=== PATIENT | male | born 1975 | race Caucasian/White ===

== ENCOUNTER 2021-02-03 08:14 | Emergency (ER) | payer OTHER ==
[2021-02-03 08:30] VITALS: BP 107/73; PULSE 82; TEMP 98.1; BMI 27.4
[2021-02-03 11:28] LABS: URINE APPEARANCE CLEAR; URINE BILIRUBIN 1+ (NEGATIVE); URINE COLOR YELLOW; URINE GLUCOSE (UA) 3+ (NEGATIVE)
[2021-02-03 11:29] LABS: URINE KETONE TRACE (NEGATIVE)
[2021-02-03 11:31] LABS: EPI CELLS 18.6 /uL (0-25.1); HYALINE CASTS 1.77 /uL (0-3.1); PH,URINE 5.5 (5.0-8.0); URINE BACTERIA 51.2 /uL (0-1359); URINE LEUK ESTERASE NEGATIVE (NEGATIVE); URINE NITRITE NEGATIVE (NEGATIVE); URINE PROTEIN 2+ (NEGATIVE); URINE RBC 27.5 /uL (0-23.9); URINE WBC 15.1 /uL (0-25.8)
== END 2021-02-03 12:14 | disposition home or self-care (01) ==
LOC: JER 08:14
DX: J06.9 Acute upper respiratory infection, unspecified (principal); E11.9 Type 2 diabetes mellitus without complications
CPT/HCPCS: 81003; 82962; 87086; 87804; 99283-25; C9803; U0003; U0005

== ENCOUNTER 2022-10-06 16:40 | Emergency (ER) | payer OTHER ==
[2022-10-06 16:54] VITALS: BP 132/82; PULSE 90; RESP 18; TEMP 98.4; BMI 27.4
[2022-10-06] MEDS ORDERED: ACETAMINOPHEN 1000 MG/100 ML BAG IVPB ONE (18:27)
[2022-10-06] MEDS ORDERED: ACETAMINOPHEN INJECTION 100 ML IVPB ONE (18:41)
[2022-10-06 18:56] LABS: EOS % 2.2 % (0-4.5); HEMATOCRIT 36.3 % (35.4-49); HEMOGLOBIN 12.6 GM/dL (11.7-16.9); LYMPH % 31.7 % (8-40); MCH 29.8 pg (25.7-33.7); MCHC 34.7 g/dl (32.0-35.9); MEAN CELL VOLUME 86.1 fl (80-96); MEAN PLT VOLUME 9.3 fl (7.5-11.1); MONO % 6.9 % (3.8-10.2); NEUT % 58.2 % (42.8-82.8); PLATELET COUNT 329 10^3/uL (134-434); RBC 4.22 M/mm3 (4.00-5.60); RDW 12.7 % (11.9-15.9); WHITE BLOOD COUNT 9.8 K/mm3 (4.0-10.0)
[2022-10-06 19:14] LABS: POTASSIUM 4.7 mmol/L (3.5-5.1)
[2022-10-06 19:15] LABS: CALCIUM 9.9 mg/dL (8.5-10.1)
[2022-10-06 19:16] LABS: ALBUMIN 3.6 g/dl (3.4-5.0)
[2022-10-06 19:21] LABS: BILIRUBIN,TOTAL 0.2 mg/dL (0.2-1); TOT PROT 6.7 g/dl (6.4-8.2)
[2022-10-06 19:51] LABS: ERYTHROCYTE SEDIMENTATION RATE 10 mm/hr (0-10)
== END 2022-10-06 21:58 | disposition home or self-care (01) ==
LOC: JER 16:40
PROC: 3E033NZ Introduction of Analgesics, Hypnotics, Sedatives into Peripheral Vein, Percutaneous Approach (ICD-10-PCS; principal; 2022-10-06)
DX: R22.41 Localized swelling, mass and lump, right lower limb (principal); M79.661 Pain in right lower leg; R50.9 Fever, unspecified; R11.0 Nausea; R20.2 Paresthesia of skin; R51.9 Headache, unspecified
CPT/HCPCS: 36415; 73562-TC-RT-FY; 73590-TC-RT-FY; 73610-TC-RT-FY; 73630-TC-RT-FY; 80053; 83605; 85025; 85651; 86140; 87040; 93971-TC; 99285-25

== ENCOUNTER 2023-03-13 22:33 | Inpatient (IN) | payer OTHER ==
[2023-03-13 22:37] VITALS: BMI 25.8
[2023-03-13] MEDS ORDERED: CLINDAMYCIN 600MG PREMIX IVPB 600 MG/50 ML BAG IVPB ONE ×2 (23:40→23:50)
[2023-03-13] MEDS ORDERED: LIDOCAINE 1%/EPI 1:100000 (20 ML MULTI DOSE VIAL) IJ ONE (23:41)
[2023-03-14] MEDS ORDERED: ACETAMINOPHEN INJECTION 100 ML IVPB ONE (00:03)
[2023-03-14] MEDS ORDERED: ACETAMINOPHEN 1000 MG/100 ML BAG IVPB ONE (00:04)
[2023-03-14 00:13] LABS: BASO % 0.8 % (0-2.0); EOS % 1.7 % (0-4.5); LYMPH % 21.8 % (8-40); MCH 28.5 pg (25.7-33.7); MCHC 34.4 g/dl (32.0-35.9); MEAN PLT VOLUME 8.7 fl (7.5-11.1); NEUT % 67.7 % (42.8-82.8); PLATELET COUNT 248 10^3/uL (134-434); RBC 4.58 M/mm3 (4.00-5.60); RDW 13.3 % (11.9-15.9)
[2023-03-14 00:21] LABS: INR 1.16 (0.83-1.09); PROTHROMBIN TIME (PATIENT) 13.4 SEC (9.7-13.0)
[2023-03-14 00:23] LABS: ACTIVATED PTT 28.4 SECONDS (25.2-36.5)
[2023-03-14 01:03] LABS: BILIRUBIN,TOTAL 0.3 mg/dL (0.2-1); BLOOD UREA NITROGEN 15.1 mg/dL (7-18); CALCIUM 8.5 mg/dL (8.5-10.1); CREATININE 0.8 mg/dL (0.55-1.3); POTASSIUM 3.9 mmol/L (3.5-5.1); TOT PROT 6.3 g/dl (6.4-8.2)
[2023-03-14] MEDS ORDERED: LACTATED RINGERS SOLUTION 1000 ML INFUS.BAG IV ONE (01:11)
[2023-03-14] MEDS: INSULIN SLIDING SCALE (NOVOLOG) 1 VIAL SQ SCH ×4 (06:06→21:53)
[2023-03-14 09:17] LABS: HEMATOCRIT 36.2 % (35.4-49); HEMOGLOBIN 12.1 GM/dL (11.7-16.9); MCH 28.1 pg (25.7-33.7); MCHC 33.4 g/dl (32.0-35.9); MEAN CELL VOLUME 84.3 fl (80-96); MEAN PLT VOLUME 8.8 fl (7.5-11.1); PLATELET COUNT 258 10^3/uL (134-434); RBC 4.29 M/mm3 (4.00-5.60); RDW 13.1 % (11.9-15.9); WHITE BLOOD COUNT 12.3 K/mm3 (4.0-10.0)
[2023-03-14] MEDS ORDERED: CEFTRIAXONE 1 GM in DEXTROSE 5%-WATER - 50 ML IVPB SCH (10:00)
[2023-03-14 10:12] LABS: POTASSIUM 3.9 mmol/L (3.5-5.1)
[2023-03-14] MEDS: CLINDAMYCIN 600MG PREMIX IVPB 600 MG/50 ML BAG IVPB SCH ×2 (10:17→17:07)
[2023-03-14] MEDS: ENOXAPARIN NA (PORCINE) 40 MG/0.4 ML DISP.SYRIN SQ SCH (10:17)
[2023-03-14 10:36] LABS: BLOOD UREA NITROGEN 12.9 mg/dL (7-18); CALCIUM 8.8 mg/dL (8.5-10.1)
[2023-03-14 10:37] LABS: ALBUMIN 2.8 g/dl (3.4-5.0); MAGNESIUM 1.9 mg/dL (1.8-2.4)
[2023-03-14 10:39] LABS: PHOSPHOROUS 2.4 mg/dL (2.5-4.9)
[2023-03-14 10:40] LABS: CREATININE 0.7 mg/dL (0.55-1.3)
[2023-03-14 10:41] LABS: BILIRUBIN,TOTAL 0.5 mg/dL (0.2-1); TOT PROT 5.9 g/dl (6.4-8.2)
[2023-03-14] MEDS: ACETAMINOPHEN 325 MG TABLET (FP) PO PRN (11:00)
[2023-03-14] MEDS ORDERED: FLU VACCINE (FLULAVAL) PF 60 MCG/0.5 ML SYRINGE 2023-2024 IM ONE (12:00)
[2023-03-14 12:36] LABS: EPI CELLS 4 /uL (0-25.1); HYALINE CASTS 0 /uL (0-3.1); PH,URINE 5.5 (5.0-8.0); URINE APPEARANCE CLEAR; URINE BACTERIA 56 /uL (0-1359); URINE BILIRUBIN NEGATIVE (NEGATIVE); URINE COLOR YELLOW; URINE GLUCOSE (UA) 3+ (NEGATIVE); URINE KETONE TRACE (NEGATIVE); URINE LEUK ESTERASE NEGATIVE (NEGATIVE); URINE NITRITE NEGATIVE (NEGATIVE); URINE PROTEIN 3+ (NEGATIVE); URINE RBC 29 /uL (0-23.9); URINE WBC 3 /uL (0-25.8)
[2023-03-14] MEDS: PIPERACILLIN/TAZOB 3.375 GM 3.375 GM in DEXTROSE 5%-WATER - 50 ML IVPB SCH (17:34)
[2023-03-14] MEDS: LISINOPRIL 10 MG TABLET PO SCH (21:53)
[2023-03-15] MEDS: CLINDAMYCIN 600MG PREMIX IVPB 600 MG/50 ML BAG IVPB SCH ×3 (01:31→17:43)
[2023-03-15] MEDS: PIPERACILLIN/TAZOB 3.375 GM 3.375 GM in DEXTROSE 5%-WATER - 50 ML IVPB SCH ×3 (02:09→18:17)
[2023-03-15] MEDS: INSULIN SLIDING SCALE (NOVOLOG) 1 VIAL SQ SCH ×4 (06:01→21:50)
[2023-03-15] MEDS: ENOXAPARIN NA (PORCINE) 40 MG/0.4 ML DISP.SYRIN SQ SCH (11:36)
[2023-03-15] MEDS: LISINOPRIL 10 MG TABLET PO SCH (21:53)
[2023-03-15] MEDS: ACETAMINOPHEN 325 MG TABLET (FP) PO PRN (21:53)
[2023-03-16] MEDS: CLINDAMYCIN 600MG PREMIX IVPB 600 MG/50 ML BAG IVPB SCH ×3 (02:44→17:27)
[2023-03-16] MEDS: PIPERACILLIN/TAZOB 3.375 GM 3.375 GM in DEXTROSE 5%-WATER - 50 ML IVPB SCH ×2 (02:44→10:23)
[2023-03-16] MEDS: INSULIN SLIDING SCALE (NOVOLOG) 1 VIAL SQ SCH ×4 (06:08→22:04)
[2023-03-16 06:17] VITALS: RESP 18
[2023-03-16] MEDS: ENOXAPARIN NA (PORCINE) 40 MG/0.4 ML DISP.SYRIN SQ SCH (09:27)
[2023-03-16] MEDS ORDERED: INSULIN (NOVOLOG) ASPART 100 UNITS/ML 10ML VIAL ONE ×2 (16:53→22:03)
[2023-03-16] MEDS: morphine SULFATE 4 MG/ML VIAL IVPUSH PRN (16:55)
[2023-03-16] MEDS: LISINOPRIL 10 MG TABLET PO SCH (22:05)
[2023-03-17] MEDS: CLINDAMYCIN 600MG PREMIX IVPB 600 MG/50 ML BAG IVPB SCH ×3 (02:12→17:28)
[2023-03-17] MEDS: morphine SULFATE 4 MG/ML VIAL IVPUSH PRN (06:20)
[2023-03-17] MEDS: INSULIN SLIDING SCALE (NOVOLOG) 1 VIAL SQ SCH ×4 (06:20→22:27)
[2023-03-17 08:19] LABS: BASO % 1.1 % (0-2.0); EOS % 3.2 % (0-4.5); HEMATOCRIT 34.1 % (35.4-49); HEMOGLOBIN 11.8 GM/dL (11.7-16.9); LYMPH % 22.3 % (8-40); MCH 28.9 pg (25.7-33.7); MCHC 34.7 g/dl (32.0-35.9); MEAN CELL VOLUME 83.2 fl (80-96); MEAN PLT VOLUME 9.1 fl (7.5-11.1); MONO % 7.5 % (3.8-10.2); NEUT % 65.9 % (42.8-82.8); PLATELET COUNT 291 10^3/uL (134-434); RDW 12.9 % (11.9-15.9); WHITE BLOOD COUNT 8.4 K/mm3 (4.0-10.0)
[2023-03-17 08:30] LABS: POTASSIUM 4.8 mmol/L (3.5-5.1)
[2023-03-17 08:33] LABS: CALCIUM 8.6 mg/dL (8.5-10.1)
[2023-03-17 08:34] LABS: ALBUMIN 2.5 g/dl (3.4-5.0); BLOOD UREA NITROGEN 21.7 mg/dL (7-18)
[2023-03-17 08:37] LABS: CREATININE 0.9 mg/dL (0.55-1.3)
[2023-03-17 08:38] LABS: BILIRUBIN,TOTAL 0.4 mg/dL (0.2-1)
[2023-03-17 08:39] LABS: TOT PROT 5.9 g/dl (6.4-8.2)
[2023-03-17] MEDS ORDERED: INSULIN (NOVOLOG) ASPART 100 UNITS/ML 10ML VIAL ONE ×2 (10:15→22:25)
[2023-03-17] MEDS: ENOXAPARIN NA (PORCINE) 40 MG/0.4 ML DISP.SYRIN SQ SCH (10:24)
[2023-03-17] MEDS: LISINOPRIL 10 MG TABLET PO SCH (22:18)
[2023-03-18] MEDS: CLINDAMYCIN 600MG PREMIX IVPB 600 MG/50 ML BAG IVPB SCH ×2 (03:00→09:05)
[2023-03-18] MEDS: INSULIN SLIDING SCALE (NOVOLOG) 1 VIAL SQ SCH ×3 (06:40→16:34)
[2023-03-18] MEDS: ENOXAPARIN NA (PORCINE) 40 MG/0.4 ML DISP.SYRIN SQ SCH (09:06)
[2023-03-18 14:28] VITALS: BP 114/70; PULSE 83; TEMP 97.6
== END 2023-03-18 17:43 | disposition home or self-care (01) | DRG 383 ==
LOC: JER 22:33 → JERBED 03-14 02:55 → J5S 03-14 04:57 → J6S 03-16 10:00
PROVIDERS: ADMIT Internal Medicine; ATTEND Internal Medicine
PROC: 0Y9J0ZZ Drainage of Left Lower Leg, Open Approach (ICD-10-PCS; principal; 2023-03-13)
DX: L03.116 Cellulitis of left lower limb (principal); B95.62 Methicillin resistant Staphylococcus aureus infection as the cause of diseases classified elsewhere; L02.416 Cutaneous abscess of left lower limb; E11.9 Type 2 diabetes mellitus without complications
CPT/HCPCS: 36415; 73700-TC-RT; 80053; 81003; 82962; 83036; 83735; 84100; 85025; 85027; 85610; 85730; 87040; 87070; 87186; 87205; 90686; 99285-25; G0008

== ENCOUNTER 2023-06-26 18:59 | Emergency (ER) | payer OTHER ==
[2023-06-26 19:20] VITALS: BP 102/68; PULSE 86; RESP 18; TEMP 99.6; BMI 28.0
[2023-06-26 20:26] LABS: THROAT:GRP A STREP NOT DETECTED (NOTDETECTED)
== END 2023-06-26 21:53 | disposition home or self-care (01) ==
LOC: JER 18:59 → JERFT 18:59
DX: R05.1 Acute cough (principal); R53.83 Other fatigue; R51.9 Headache, unspecified; R63.0 Anorexia; M25.561 Pain in right knee; M71.21 Synovial cyst of popliteal space [Baker], right knee; J10.1 Influenza due to other identified influenza virus with other respiratory manifestations; Z20.822 Contact with and (suspected) exposure to COVID-19
CPT/HCPCS: 0241U-QW; 71046-TC-FY; 87651; 93971-TC; 99285-25

== ENCOUNTER 2023-08-04 09:08 | Inpatient (IN) | payer OTHER ==
[2023-08-04] MEDS ORDERED: MECLIZINE HCL 25 MG TABLET (FP) ONE (10:13)
[2023-08-04] MEDS: MECLIZINE HCL 25 MG TABLET (FP) PO ONE (10:22)
[2023-08-04] MEDS: SODIUM CHLORIDE 0.9% 500 ML INFUS.BAG IV ONE (10:33)
[2023-08-04 10:42] LABS: VENOUS BASE EXCESS -0.3 mmol/L (-2-2); VENOUS PCO2 46.7 mmHg (38-52); VENOUS PH 7.357 (7.310-7.410)
[2023-08-04 10:45] LABS: BASO % 0.7 % (0-2.0); EOS % 1.7 % (0-4.5); HEMATOCRIT 41.9 % (35.4-49); HEMOGLOBIN 14.4 GM/dL (11.7-16.9); LYMPH % 18.2 % (8-40); MCH 28.7 pg (25.7-33.7); MCHC 34.2 g/dl (32.0-35.9); MEAN CELL VOLUME 83.9 fl (80-96); MEAN PLT VOLUME 8.4 fl (7.5-11.1); MONO % 4.6 % (3.8-10.2); NEUT % 74.8 % (42.8-82.8); PLATELET COUNT 305 10^3/uL (134-434); RBC 4.99 M/mm3 (4.00-5.60); WHITE BLOOD COUNT 14.5 K/mm3 (4.0-10.0)
[2023-08-04 10:46] LABS: EPI CELLS 18 /uL (0-25.1); HYALINE CASTS 0 /uL (0-3.1); URINE APPEARANCE CLEAR; URINE BACTERIA 140 /uL (0-1359); URINE BILIRUBIN NEGATIVE (NEGATIVE); URINE COLOR YELLOW; URINE GLUCOSE (UA) 3+ (NEGATIVE); URINE KETONE NEGATIVE (NEGATIVE); URINE LEUK ESTERASE NEGATIVE (NEGATIVE); URINE NITRITE NEGATIVE (NEGATIVE); URINE PROTEIN 3+ (NEGATIVE); URINE RBC 29 /uL (0-23.9); URINE UROBILINOGEN 0.2 mg/dL (0.2-1.0)
[2023-08-04 11:07] LABS: POTASSIUM 4.6 mmol/L (3.5-5.1)
[2023-08-04 11:09] LABS: ALBUMIN 3.2 g/dl (3.4-5.0); BLOOD UREA NITROGEN 9.9 mg/dL (7-18); CALCIUM 9.3 mg/dL (8.5-10.1); MAGNESIUM 1.8 mg/dL (1.8-2.4)
[2023-08-04 11:12] LABS: CREATININE 0.9 mg/dL (0.55-1.3)
[2023-08-04 11:14] LABS: BILIRUBIN,TOTAL 0.2 mg/dL (0.2-1); TOT PROT 6.8 g/dl (6.4-8.2)
[2023-08-04 11:48] LABS: CHOLESTEROL 191 mg/dL (50-200)
[2023-08-04 11:49] LABS: LDL CHOLESTEROL (ONLY SJRH) 116 mg/dL (5-100)
[2023-08-04 11:50] LABS: HDL CHOLESTEROL 55 mg/dL (40-60)
[2023-08-04] MEDS ORDERED: METOCLOPRAMIDE HCL INJECTION 10 MG/2 ML VIAL ONE (13:45)
[2023-08-04] MEDS: LACTATED RINGERS SOLUTION 1,000 ML/1,000 ML INFUS.BAG IV SCH (14:00)
[2023-08-04] MEDS: METOCLOPRAMIDE HCL INJECTION 10 MG/2 ML VIAL IVPUSH ONE (14:00)
[2023-08-04] MEDS ORDERED: MECLIZINE HCL 25 MG TABLET (FP) PO PRN (14:58)
[2023-08-04 16:01] VITALS: BMI 23.0
[2023-08-04] MEDS: INSULIN ASPART SLIDING SCALE (NOVOLOG) 1 VIAL SQ SCH (17:11)
[2023-08-04] MEDS: glipiZIDE 5 MG TABLET (FP) PO SCH (17:11)
[2023-08-04] MEDS: metFORMIN HCL 500 MG TABLET (FP) PO SCH (17:11)
[2023-08-04 17:53] LABS: METHADONE, UR NEGATIVE (NEGATIVE); URINE AMPHETAMINES NEGATIVE (NEGATIVE); URINE BENZODIAZEPINES NEGATIVE (NEGATIVE)
[2023-08-04 17:54] LABS: OPIATES, URI NEGATIVE (NEGATIVE); PHENCYCLIDINE,URINE NEGATIVE (NEGATIVE); URINE BARBITURATES NEGATIVE (NEGATIVE)
[2023-08-04 18:02] LABS: COCAINE, UR POSITIVE (NEGATIVE)
[2023-08-04] MEDS: HEPARIN NA (PORCINE) 5,000 UNITS/ML 1ML VIAL SQ SCH (22:03)
[2023-08-04] MEDS: ATORVASTATIN CA 10 MG TABLET (FP) PO SCH (22:04)
[2023-08-05 06:33] LABS: BASO % 1.1 % (0-2.0); EOS % 2.6 % (0-4.5); HEMATOCRIT 34.8 % (35.4-49); HEMOGLOBIN 11.9 GM/dL (11.7-16.9); LYMPH % 40.7 % (8-40); MCH 28.5 pg (25.7-33.7); MCHC 34.1 g/dl (32.0-35.9); MEAN CELL VOLUME 83.6 fl (80-96); MEAN PLT VOLUME 8.8 fl (7.5-11.1); MONO % 5.1 % (3.8-10.2); NEUT % 50.5 % (42.8-82.8); PLATELET COUNT 250 10^3/uL (134-434); RBC 4.17 M/mm3 (4.00-5.60); WHITE BLOOD COUNT 9.1 K/mm3 (4.0-10.0)
[2023-08-05 06:58] LABS: POTASSIUM 3.9 mmol/L (3.5-5.1)
[2023-08-05 07:04] LABS: CALCIUM 8.1 mg/dL (8.5-10.1)
[2023-08-05 07:05] LABS: BLOOD UREA NITROGEN 13.3 mg/dL (7-18)
[2023-08-05 07:07] LABS: CREATININE 0.7 mg/dL (0.55-1.3)
[2023-08-05 07:09] LABS: BILIRUBIN,TOTAL 0.2 mg/dL (0.2-1); TOT PROT 4.9 g/dl (6.4-8.2)
[2023-08-05 07:36] LABS: ALBUMIN 2.3 g/dl (3.4-5.0)
[2023-08-05] MEDS ORDERED: LISINOPRIL 10 MG TABLET PO SCH (10:00)
[2023-08-05] MEDS: EMPAGLIFLOZIN (JARDIANCE) 10 MG TABLET PO SCH (10:51)
[2023-08-05] MEDS: LISINOPRIL 10 MG TABLET PO SCH (10:51)
[2023-08-05] MEDS: SODIUM CHLORIDE 500 ML IV STA (10:52)
[2023-08-05] MEDS: ASPIRIN 81 MG CHEWABLE TABLETS PO SCH (10:53)
[2023-08-05] MEDS: metFORMIN HCL 500 MG TABLET (FP) PO SCH (17:46)
[2023-08-05] MEDS: NICOTINE 14 MG/24 HOURS TOPICAL PATCH TD SCH (17:47)
[2023-08-06 07:26] LABS: HEMOGLOBIN 12.4 GM/dL (11.7-16.9); MCH 28.5 pg (25.7-33.7); MCHC 33.6 g/dl (32.0-35.9); MEAN CELL VOLUME 84.9 fl (80-96); MEAN PLT VOLUME 9.1 fl (7.5-11.1); PLATELET COUNT 271 10^3/uL (134-434); RBC 4.36 M/mm3 (4.00-5.60); RDW 13.1 % (11.9-15.9); WHITE BLOOD COUNT 7.8 K/mm3 (4.0-10.0)
[2023-08-06 07:51] LABS: POTASSIUM 4.2 mmol/L (3.5-5.1)
[2023-08-06 07:56] LABS: MAGNESIUM 1.7 mg/dL (1.8-2.4)
[2023-08-06 07:59] LABS: PHOSPHOROUS 5.3 mg/dL (2.5-4.9)
[2023-08-06 08:00] LABS: CREATININE 0.9 mg/dL (0.55-1.3)
[2023-08-06] MEDS: MAGNESIUM SULF 50% (8.12 MEQ/2 ML-1 GM VIAL) IVPB ONE (10:25)
[2023-08-06 14:15] VITALS: TEMP 98.2
[2023-08-06 18:46] VITALS: BP 120/71; PULSE 95; RESP 18
== END 2023-08-06 19:29 | disposition home or self-care (01) | DRG 420 ==
LOC: JER 09:08 → JERBED 13:05 → OBSVTOIN 14:55 → J4S 15:03
PROVIDERS: ADMIT Internal Medicine; ATTEND Internal Medicine
DX: E11.65 Type 2 diabetes mellitus with hyperglycemia (principal); R42 Dizziness and giddiness; R20.0 Anesthesia of skin; I10 Essential (primary) hypertension; F19.20 Other psychoactive substance dependence, uncomplicated; E87.1 Hypo-osmolality and hyponatremia; F17.210 Nicotine dependence, cigarettes, uncomplicated; F14.20 Cocaine dependence, uncomplicated; E11.40 Type 2 diabetes mellitus with diabetic neuropathy, unspecified; E46 Unspecified protein-calorie malnutrition; Z68.23 Body mass index [BMI] 23.0-23.9, adult
CPT/HCPCS: 36415; 70450-TC; 71045-TC-FY; 80048; 80053; 80061; 80307; 81003; 82803; 82962; 83036; 83735; 84100; 84443; 85025; 85027; 93005; 93010; 99285-25; G0378; J1644

== ENCOUNTER 2023-08-23 16:55 | Emergency (ER) | payer OTHER ==
[2023-08-23] MEDS ORDERED: METOCLOPRAMIDE HCL INJECTION 10 MG/2 ML VIAL ONE (18:01)
[2023-08-23] MEDS ORDERED: NALOXONE HCL 0.4 MG/ML VIAL ONE (18:01)
[2023-08-23 18:06] LABS: VENOUS BASE EXCESS -2.7 mmol/L (-2-2); VENOUS O2 SATURATION 88.8 % (70-80); VENOUS PCO2 35.2 mmHg (38-52); VENOUS PH 7.401 (7.310-7.410)
[2023-08-23 18:06] LABS: BASO % 0.5 % (0-2.0); EOS % 0.5 % (0-4.5); HEMATOCRIT 37.9 % (35.4-49); LYMPH % 13.2 % (8-40); MCH 28.8 pg (25.7-33.7); MCHC 34.2 g/dl (32.0-35.9); MEAN PLT VOLUME 7.9 fl (7.5-11.1); MONO % 5.4 % (3.8-10.2); NEUT % 80.4 % (42.8-82.8); PLATELET COUNT 324 10^3/uL (134-434); RBC 4.51 M/mm3 (4.00-5.60); WHITE BLOOD COUNT 10.8 K/mm3 (4.0-10.0)
[2023-08-23] MEDS: METOCLOPRAMIDE HCL INJECTION 10 MG/2 ML VIAL IVPUSH ONE (18:11)
[2023-08-23] MEDS: SODIUM CHLORIDE 0.9% 500 ML INFUS.BAG IV ONE (18:11)
[2023-08-23] MEDS: NALOXONE HCL 0.4 MG/ML VIAL IVPUSH ONE (18:11)
[2023-08-23 18:16] VITALS: BP 138/86; PULSE 81; RESP 12; BMI 21.6
[2023-08-23 18:17] LABS: INR 1.25 (0.83-1.09)
[2023-08-23 18:20] LABS: ACTIVATED PTT 30.7 SECONDS (25.2-36.5)
[2023-08-23 18:26] LABS: POTASSIUM 3.5 mmol/L (3.5-5.1)
[2023-08-23 18:27] LABS: CALCIUM 8.8 mg/dL (8.5-10.1)
[2023-08-23 18:29] LABS: ALBUMIN 2.9 g/dl (3.4-5.0); BLOOD UREA NITROGEN 15.2 mg/dL (7-18)
[2023-08-23 18:31] LABS: CREATININE 0.8 mg/dL (0.55-1.3)
[2023-08-23 18:33] LABS: TOT PROT 6.1 g/dl (6.4-8.2)
[2023-08-23 18:34] LABS: BILIRUBIN,TOTAL 0.4 mg/dL (0.2-1)
[2023-08-23 20:08] LABS: EPI CELLS 6 /uL (0-25.1); HYALINE CASTS 0 /uL (0-3.1); PH,URINE 6.5 (5.0-8.0); URINE APPEARANCE CLEAR; URINE BACTERIA 45 /uL (0-1359); URINE BILIRUBIN NEGATIVE (NEGATIVE); URINE COLOR YELLOW; URINE GLUCOSE (UA) 3+ (NEGATIVE); URINE KETONE TRACE (NEGATIVE); URINE LEUK ESTERASE NEGATIVE (NEGATIVE); URINE NITRITE NEGATIVE (NEGATIVE); URINE PROTEIN 3+ (NEGATIVE); URINE RBC 32 /uL (0-23.9); URINE UROBILINOGEN 0.2 mg/dL (0.2-1.0); URINE WBC 16 /uL (0-25.8)
[2023-08-23 20:10] LABS: PHENCYCLIDINE,URINE NEGATIVE (NEGATIVE)
[2023-08-23 20:11] LABS: METHADONE, UR NEGATIVE (NEGATIVE); OPIATES, URI NEGATIVE (NEGATIVE); URINE AMPHETAMINES NEGATIVE (NEGATIVE); URINE BENZODIAZEPINES NEGATIVE (NEGATIVE)
[2023-08-23 20:17] LABS: URINE BARBITURATES NEGATIVE (NEGATIVE)
[2023-08-23 20:28] LABS: COCAINE, UR POSITIVE (NEGATIVE)
[2023-08-23] MEDS ORDERED: MAGNESIUM SULFATE IN WATER 2 GM/50 ML IVPB IVPB ONE (21:34)
[2023-08-23] MEDS: MAGNESIUM SULF 50% (8.12 MEQ/2 ML-1 GM VIAL) IVPB ONE (21:40)
== END 2023-08-23 22:34 | disposition home or self-care (01) ==
LOC: JER 16:55
PROC: 3E033GC Introduction of Other Therapeutic Substance into Peripheral Vein, Percutaneous Approach (ICD-10-PCS; principal; 2023-08-23)
PROC: 3E033GC Introduction of Other Therapeutic Substance into Peripheral Vein, Percutaneous Approach (ICD-10-PCS; 2023-08-23)
PROC: 3E033NZ Introduction of Analgesics, Hypnotics, Sedatives into Peripheral Vein, Percutaneous Approach (ICD-10-PCS; 2023-08-23)
DX: R42 Dizziness and giddiness (principal); R51.9 Headache, unspecified; R11.2 Nausea with vomiting, unspecified; R73.9 Hyperglycemia, unspecified
CPT/HCPCS: 36415; 70450-TC; 70496-TC; 70498-TC; 71045-TC-FY; 80053; 80061; 80307; 81003; 82550; 82803; 82962; 83036; 83735; 84484; 85025; 85610; 85730; 86850; 86900; 86901; 93005; 93010; 99285-25; Q9967

== ENCOUNTER 2024-01-05 09:52 | Emergency (ER) | payer OTHER ==
[2024-01-05 10:02] VITALS: TEMP 98.2; BMI 21.6
[2024-01-05] MEDS: SODIUM CHLORIDE 0.9% 500 ML INFUS.BAG IV ONE (10:49)
[2024-01-05 10:51] LABS: VENOUS O2 SATURATION 60.9 % (70-80); VENOUS PCO2 41.9 mmHg (38-52); VENOUS PH 7.378 (7.310-7.410)
[2024-01-05 10:54] LABS: BASO % 0.6 % (0-2.0); HEMATOCRIT 36.1 % (35.4-49); HEMOGLOBIN 12.6 GM/dL (11.7-16.9); LYMPH % 18.8 % (8-40); MCHC 34.9 g/dl (32.0-35.9); MEAN CELL VOLUME 83.1 fl (80-96); MEAN PLT VOLUME 7.4 fl (7.5-11.1); MONO % 6.8 % (3.8-10.2); NEUT % 72.8 % (42.8-82.8); PLATELET COUNT 338 10^3/uL (134-434); RBC 4.34 M/mm3 (4.00-5.60); RDW 13.3 % (11.9-15.9); WHITE BLOOD COUNT 10.8 K/mm3 (4.0-10.0)
[2024-01-05 11:12] LABS: POTASSIUM 4.3 mmol/L (3.5-5.1)
[2024-01-05 11:15] LABS: ALBUMIN 3.3 g/dl (3.4-5.0)
[2024-01-05 11:18] LABS: CREATININE 0.9 mg/dL (0.55-1.3)
[2024-01-05 11:19] LABS: BILIRUBIN,TOTAL 0.3 mg/dL (0.2-1); TOT PROT 6.5 g/dl (6.4-8.2)
[2024-01-05 11:37] VITALS: BP 110/79; PULSE 78; RESP 17
== END 2024-01-05 11:42 | disposition home or self-care (01) ==
LOC: JER 09:52
DX: E11.65 Type 2 diabetes mellitus with hyperglycemia (principal); Z79.84 Long term (current) use of oral hypoglycemic drugs
CPT/HCPCS: 36415; 80053; 82010; 82803; 82962; 85025; 99283-25

== ENCOUNTER 2024-02-19 09:38 | Emergency (ER) | payer OTHER ==
[2024-02-19 09:49] VITALS: BP 133/83; PULSE 102; RESP 17; TEMP 98.2
[2024-02-19] MEDS ORDERED: ACETAMINOPHEN 500 MG TABLET (FP) ONE (11:04)
[2024-02-19] MEDS: ACETAMINOPHEN 500 MG TABLET (FP) PO ONE (11:19)
[2024-02-19 11:42] LABS: BASO % 1.1 % (0-2.0); EOS % 2.8 % (0-4.5); HEMATOCRIT 38.8 % (35.4-49); HEMOGLOBIN 13.1 GM/dL (11.7-16.9); LYMPH % 28.1 % (8-40); MCH 28.7 pg (25.7-33.7); MCHC 33.8 g/dl (32.0-35.9); MEAN PLT VOLUME 8.3 fl (7.5-11.1); MONO % 5.9 % (3.8-10.2); NEUT % 62.1 % (42.8-82.8); PLATELET COUNT 352 10^3/uL (134-434); RBC 4.57 M/mm3 (4.00-5.60); RDW 13.2 % (11.9-15.9); WHITE BLOOD COUNT 9.6 K/mm3 (4.0-10.0)
[2024-02-19 11:49] LABS: EPI CELLS 5 /uL (0-25.1); HYALINE CASTS 0 /uL (0-3.1); PH,URINE 5.5 (5.0-8.0); URINE APPEARANCE CLEAR; URINE BACTERIA 181 /uL (0-1359); URINE BILIRUBIN NEGATIVE (NEGATIVE); URINE COLOR YELLOW; URINE GLUCOSE (UA) 3+ (NEGATIVE); URINE KETONE NEGATIVE (NEGATIVE); URINE LEUK ESTERASE NEGATIVE (NEGATIVE); URINE NITRITE NEGATIVE (NEGATIVE); URINE PROTEIN 2+ (NEGATIVE); URINE UROBILINOGEN 0.2 mg/dL (0.2-1.0)
[2024-02-19 11:59] LABS: POTASSIUM 4.5 mmol/L (3.5-5.1)
[2024-02-19 12:01] LABS: ALBUMIN 3.1 g/dl (3.4-5.0); BLOOD UREA NITROGEN 12.9 mg/dL (7-18); CALCIUM 9.5 mg/dL (8.5-10.1)
[2024-02-19 12:05] LABS: CREATININE 0.9 mg/dL (0.55-1.3)
[2024-02-19 12:06] LABS: BILIRUBIN,TOTAL 0.2 mg/dL (0.2-1); TOT PROT 6.5 g/dl (6.4-8.2); URINE RBC 20 /uL (0-23.9); URINE WBC 107.9 /uL (0-25.8)
[2024-02-19 12:43] LABS: THROAT:GRP A STREP NOT DETECTED (NOTDETECTED)
[2024-02-19 13:19] LABS: HIV INTERPRETATION NEGATIVE (NEGATIVE)
== END 2024-02-19 15:07 | disposition left against medical advice (07) ==
LOC: JERFT 09:38
DX: R09.81 Nasal congestion (principal); R05.9 Cough, unspecified; R51.9 Headache, unspecified; M79.10 Myalgia, unspecified site; R00.0 Tachycardia, unspecified; J06.9 Acute upper respiratory infection, unspecified; E11.65 Type 2 diabetes mellitus with hyperglycemia; Z20.822 Contact with and (suspected) exposure to COVID-19
CPT/HCPCS: 0241U-QW; 36415; 71046-TC-FY; 80053; 81003; 85025; 86803; 87086; 87389; 87651; 99284-25

== ENCOUNTER 2024-02-22 11:07 | Emergency (ER) | payer OTHER ==
[2024-02-22] MEDS ORDERED: ACETAMINOPHEN INJECTION 100 ML ONE (12:33)
[2024-02-22] MEDS ORDERED: METOCLOPRAMIDE HCL INJECTION 10 MG/2 ML VIAL ONE (12:34)
[2024-02-22] MEDS: ACETAMINOPHEN 1000 MG/100 ML BAG IVPB ONE (12:53)
[2024-02-22] MEDS: METOCLOPRAMIDE HCL INJECTION 10 MG/2 ML VIAL IVPB ONE (12:53)
[2024-02-22 13:00] LABS: HEMATOCRIT 37.9 % (35.4-49); HEMOGLOBIN 13.1 GM/dL (11.7-16.9); MCH 28.9 pg (25.7-33.7); MCHC 34.4 g/dl (32.0-35.9); MEAN CELL VOLUME 84.1 fl (80-96); MEAN PLT VOLUME 7.7 fl (7.5-11.1); PLATELET COUNT 341 10^3/uL (134-434); RBC 4.51 M/mm3 (4.00-5.60); RDW 13.4 % (11.9-15.9); WHITE BLOOD COUNT 10.8 K/mm3 (4.0-10.0)
[2024-02-22 13:27] LABS: POTASSIUM 4.3 mmol/L (3.5-5.1)
[2024-02-22 13:31] LABS: CALCIUM 8.7 mg/dL (8.5-10.1)
[2024-02-22 13:32] LABS: ALBUMIN 3.2 g/dl (3.4-5.0); BLOOD UREA NITROGEN 17.3 mg/dL (7-18)
[2024-02-22 13:35] LABS: CREATININE 1.5 mg/dL (0.55-1.3)
[2024-02-22 13:36] LABS: BILIRUBIN,TOTAL 0.4 mg/dL (0.2-1)
[2024-02-22 13:37] LABS: TOT PROT 6.6 g/dl (6.4-8.2)
[2024-02-22 16:45] VITALS: BP 99/70; PULSE 75; RESP 20; TEMP 98.2
== END 2024-02-22 17:26 | disposition home or self-care (01) ==
LOC: JERFT 11:07 → JER 11:07 → JERFT 17:26
DX: G43.909 Migraine, unspecified, not intractable, without status migrainosus (principal); R42 Dizziness and giddiness
CPT/HCPCS: 36415; 70450-TC; 80053; 82962; 85027; 99284-25; J0131

== ENCOUNTER 2024-02-29 15:34 | Emergency (ER) | payer OTHER ==
[2024-02-29 15:59] VITALS: BP 131/84; PULSE 91; RESP 16; TEMP 98.1; BMI 25.4
[2024-02-29] MEDS: SODIUM CHLORIDE 0.9% 500 ML INFUS.BAG IV ONE (17:30)
[2024-02-29 17:35] LABS: EPI CELLS 22 /uL (0-25.1); HYALINE CASTS 1 /uL (0-3.1); URINE APPEARANCE CLEAR; URINE BACTERIA 138 /uL (0-1359); URINE BILIRUBIN NEGATIVE (NEGATIVE); URINE COLOR YELLOW; URINE GLUCOSE (UA) 3+ (NEGATIVE); URINE KETONE TRACE (NEGATIVE); URINE LEUK ESTERASE NEGATIVE (NEGATIVE); URINE NITRITE NEGATIVE (NEGATIVE); URINE PROTEIN 4+ (NEGATIVE); URINE RBC 26 /uL (0-23.9); URINE UROBILINOGEN 0.2 mg/dL (0.2-1.0)
[2024-02-29] MEDS ORDERED: ACETAMINOPHEN 500 MG TABLET (FP) ONE (19:10)
[2024-02-29] MEDS: ACETAMINOPHEN 500 MG TABLET (FP) PO ONE (19:12)
[2024-02-29 22:02] LABS: URINE WBC 20 /uL (0-25.8)
== END 2024-02-29 19:18 | disposition home or self-care (01) ==
LOC: JER 15:34
DX: R51.9 Headache, unspecified (principal); M25.561 Pain in right knee; G89.28 Other chronic postprocedural pain; R68.83 Chills (without fever); Z20.822 Contact with and (suspected) exposure to COVID-19
CPT/HCPCS: 0241U-QW; 71046-TC-FY; 81003; 82962; 87086; 99284-25

== ENCOUNTER 2024-04-28 18:18 | Inpatient (IN) | payer OTHER ==
[2024-04-28] MEDS ORDERED: PIPERACILLIN/TAZOB 4.5 GM 4.5 GM/100 ML BAG IVPB ONE (20:56)
[2024-04-28] MEDS ORDERED: VANCOMYCIN 1 GM PREMIX (F) 1 GM/200 ML BAG ONE (20:56)
[2024-04-28] MEDS ORDERED: ACETAMINOPHEN INJECTION 100 ML ONE (20:56)
[2024-04-28] MEDS: PIPERACILLIN/TAZOB 4.5 GM 4.5 GM in DEXTROSE 5%-WATER 100 ML IVPB ONE (21:19)
[2024-04-28] MEDS: ACETAMINOPHEN 1000 MG/100 ML BAG IVPB ONE (21:19)
[2024-04-28 21:23] LABS: BASO % 0.5 % (0-2.0); EOS % 1.5 % (0-4.5); HEMATOCRIT 41.5 % (35.4-49); HEMOGLOBIN 14.1 GM/dL (11.7-16.9); LYMPH % 26.3 % (8-40); MCH 28.6 pg (25.7-33.7); MCHC 33.9 g/dl (32.0-35.9); MEAN CELL VOLUME 84.3 fl (80-96); MONO % 4.4 % (3.8-10.2); NEUT % 67.3 % (42.8-82.8); PLATELET COUNT 329 10^3/uL (134-434); RBC 4.92 M/mm3 (4.00-5.60); WHITE BLOOD COUNT 10.6 K/mm3 (4.0-10.0)
[2024-04-28 21:31] LABS: INR 1.21 (0.83-1.09); PROTHROMBIN TIME (PATIENT) 13.8 SEC (9.7-13.0)
[2024-04-28 21:50] LABS: CHLORIDE 98 mmol/L (98-107); POTASSIUM 4.6 mmol/L (3.5-5.1); SODIUM 135 mmol/L (136-145)
[2024-04-28 21:54] LABS: ALBUMIN 3.1 g/dl (3.4-5.0)
[2024-04-28 21:56] LABS: ANION GAP 7 mmol/L (4-13); CALCIUM 9.3 mg/dL (8.5-10.1); CO2 30 mmol/L (21-32); SGPT/ALT 11 U/L (13-61)
[2024-04-28 21:57] LABS: BILIRUBIN,TOTAL 0.3 mg/dL (0.2-1); CREATININE 1.1 mg/dL (0.55-1.3); SGOT/AST 8 U/L (15-37)
[2024-04-28 21:58] LABS: ALK PHOS 170 U/L (45-117); TOT PROT 6.8 g/dl (6.4-8.2)
[2024-04-28 22:05] LABS: GLUCOSE,RANDOM 405 mg/dL (74-106)
[2024-04-28] MEDS: VANCOMYCIN 1,000 MG in DEXTROSE 5%-WATER - 250 ML IVPB ONE (22:22)
[2024-04-28] MEDS: LACTATED RINGERS SOLUTION 1000 ML INFUS.BAG IV ONE (22:47)
[2024-04-28] MEDS: SODIUM CHLORIDE 1,000 ML IV SCH (22:48)
[2024-04-28] MEDS: INSULIN (NOVOLOG) ASPART 100 UNITS/ML 10ML VIAL SQ ONE (22:48)
[2024-04-28 22:55] LABS: HIV INTERPRETATION NEGATIVE (NEGATIVE)
[2024-04-28] MEDS: INSULIN (LEVEMIR) 100 UNITS/ML UNITS SQ SCH (23:27)
[2024-04-28 23:29] LABS: ERYTHROCYTE SEDIMENTATION RATE 38 mm/hr (0-10)
[2024-04-28] MEDS ORDERED: INSULIN (LEVEMIR) 100 UNITS/ML UNITS SQ ONE (23:38)
[2024-04-29] MEDS: NICOTINE 14 MG/24 HOURS TOPICAL PATCH TD SCH (00:33)
[2024-04-29] MEDS ORDERED: ACETAMINOPHEN 500 MG TABLET (FP) PO PRN (00:45)
[2024-04-29] MEDS ORDERED: PIPERACILLIN/TAZOB 3.375 GM 3.375 GM/50 ML BAG IVPB ONE ×2 (02:04→09:28)
[2024-04-29] MEDS: PIPERACILLIN/TAZOB 3.375 GM 3.375 GM in DEXTROSE 5%-WATER - 50 ML IVPB SCH (02:13)
[2024-04-29] MEDS: INSULIN ASPART SLIDING SCALE (NOVOLOG) 1 VIAL SQ SCH (07:19)
[2024-04-29 07:57] LABS: BASO % 0.8 % (0-2.0); EOS % 4.4 % (0-4.5); HEMATOCRIT 36.7 % (35.4-49); HEMOGLOBIN 12.5 GM/dL (11.7-16.9); LYMPH % 43.1 % (8-40); MCH 28.9 pg (25.7-33.7); MCHC 34.1 g/dl (32.0-35.9); MEAN CELL VOLUME 84.6 fl (80-96); MEAN PLT VOLUME 8.3 fl (7.5-11.1); MONO % 6.2 % (3.8-10.2); NEUT % 45.5 % (42.8-82.8); PLATELET COUNT 303 10^3/uL (134-434); RBC 4.34 M/mm3 (4.00-5.60); WHITE BLOOD COUNT 8.5 K/mm3 (4.0-10.0)
[2024-04-29 08:09] LABS: POTASSIUM 3.8 mmol/L (3.5-5.1)
[2024-04-29 08:11] LABS: CALCIUM 8.7 mg/dL (8.5-10.1)
[2024-04-29 08:12] LABS: ALBUMIN 2.6 g/dl (3.4-5.0); BLOOD UREA NITROGEN 20.5 mg/dL (7-18); MAGNESIUM 1.6 mg/dL (1.8-2.4)
[2024-04-29 08:15] LABS: PHOSPHOROUS 4.5 mg/dL (2.5-4.9)
[2024-04-29 08:17] LABS: BILIRUBIN,TOTAL 0.3 mg/dL (0.2-1); TOT PROT 5.5 g/dl (6.4-8.2)
[2024-04-29] MEDS ORDERED: INSULIN (LEVEMIR) 100 UNITS/ML UNITS SQ ONE (09:29)
[2024-04-29] MEDS: INSULIN (LEVEMIR) 100 UNITS/ML UNITS SQ SCH (09:32)
[2024-04-29] MEDS: ENOXAPARIN NA (PORCINE) 40 MG/0.4 ML DISP.SYRIN SQ SCH (09:33)
[2024-04-29] MEDS ORDERED: INSULIN ASPART SLIDING SCALE (NOVOLOG) 1 VIAL SQ ONE (12:31)
[2024-04-29] MEDS: VANCOMYCIN 1,000 MG in DEXTROSE 5%-WATER - 250 ML IVPB SCH (16:38)
[2024-04-29] MEDS ORDERED: VANCOMYCIN 1,000 MG in DEXTROSE 5%-WATER - 250 ML IVPB SCH (20:00)
[2024-04-29] MEDS ORDERED: VANCOMYCIN 1 GM PREMIX (F) 1 GM/200 ML BAG IVPB SCH (21:00)
[2024-04-29] MEDS: GABAPENTIN 300 MG CAPSULE PO SCH (22:49)
[2024-04-29] MEDS: ATORVASTATIN CA 10 MG TABLET (FP) PO SCH (22:49)
[2024-04-29 23:14] VITALS: BMI 21.8
[2024-04-30] MEDS: PIPERACILLIN/TAZOB 3.375 GM 3.375 GM in DEXTROSE 5%-WATER - 50 ML IVPB SCH (01:10)
[2024-04-30] MEDS: glipiZIDE 5 MG TABLET (FP) PO SCH (06:43)
[2024-04-30] MEDS: metFORMIN HCL 500 MG TABLET (FP) PO SCH (06:43)
[2024-04-30 09:13] LABS: BASO % 0.9 % (0-2.0); EOS % 3.4 % (0-4.5); HEMATOCRIT 34.3 % (35.4-49); HEMOGLOBIN 11.6 GM/dL (11.7-16.9); LYMPH % 41.9 % (8-40); MCH 28.9 pg (25.7-33.7); MCHC 33.9 g/dl (32.0-35.9); MEAN CELL VOLUME 85.4 fl (80-96); MEAN PLT VOLUME 8.5 fl (7.5-11.1); MONO % 5.1 % (3.8-10.2); NEUT % 48.7 % (42.8-82.8); PLATELET COUNT 280 10^3/uL (134-434); RBC 4.02 M/mm3 (4.00-5.60); RDW 13.1 % (11.9-15.9); WHITE BLOOD COUNT 8.3 K/mm3 (4.0-10.0)
[2024-04-30 09:20] LABS: POTASSIUM 3.9 mmol/L (3.5-5.1)
[2024-04-30 09:31] LABS: ALBUMIN 2.4 g/dl (3.4-5.0); CALCIUM 8.4 mg/dL (8.5-10.1)
[2024-04-30 09:34] LABS: CREATININE 0.9 mg/dL (0.55-1.3)
[2024-04-30 09:36] LABS: BILIRUBIN,TOTAL 0.2 mg/dL (0.2-1); TOT PROT 5.2 g/dl (6.4-8.2)
[2024-04-30] MEDS: LISINOPRIL 5 MG TABLET PO SCH (10:49)
[2024-04-30 19:07] VITALS: BP 96/67; PULSE 76; RESP 20; TEMP 98.2
== END 2024-04-30 19:28 | disposition home or self-care (01) | DRG 197 ==
LOC: JER 18:18 → JERBED 22:32 → J7W 04-29 20:42
PROVIDERS: ADMIT Internal Medicine; ATTEND Internal Medicine
DX: E11.52 Type 2 diabetes mellitus with diabetic peripheral angiopathy with gangrene (principal); I96 Gangrene, not elsewhere classified; E11.40 Type 2 diabetes mellitus with diabetic neuropathy, unspecified; E11.621 Type 2 diabetes mellitus with foot ulcer; E11.65 Type 2 diabetes mellitus with hyperglycemia; I10 Essential (primary) hypertension; R42 Dizziness and giddiness; L97.528 Non-pressure chronic ulcer of other part of left foot with other specified severity; Z91.148 Patient's other noncompliance with medication regimen for other reason
CPT/HCPCS: 36415; 73630-TC-LT; 73718-TC-LT; 80053; 82962; 83036; 83735; 84100; 85025; 85610; 85651; 86140; 86803; 87081; 87389; 93005; 93010; 93922; 93925-TC; 99285-25; J0131

== ENCOUNTER 2024-05-11 20:29 | Inpatient (IN) | payer OTHER ==
[2024-05-12] MEDS ORDERED: VANCOMYCIN 1,000 MG in DEXTROSE 5%-WATER - 250 ML IVPB ONE (01:00)
[2024-05-12 01:36] LABS: BASO % 0.6 % (0-2.0); EOS % 3.7 % (0-4.5); HEMATOCRIT 37.4 % (35.4-49); HEMOGLOBIN 12.7 GM/dL (11.7-16.9); LYMPH % 38.6 % (8-40); MCH 28.7 pg (25.7-33.7); MEAN CELL VOLUME 84.4 fl (80-96); MEAN PLT VOLUME 8.1 fl (7.5-11.1); NEUT % 49.1 % (42.8-82.8); PLATELET COUNT 295 10^3/uL (134-434); RBC 4.43 M/mm3 (4.00-5.60); RDW 13.2 % (11.9-15.9); WHITE BLOOD COUNT 7.6 K/mm3 (4.0-10.0)
[2024-05-12 01:55] LABS: POTASSIUM 4.5 mmol/L (3.5-5.1)
[2024-05-12 01:56] LABS: CALCIUM 8.9 mg/dL (8.5-10.1)
[2024-05-12 01:57] LABS: BLOOD UREA NITROGEN 32.4 mg/dL (7-18)
[2024-05-12 02:00] LABS: CREATININE 1.1 mg/dL (0.55-1.3)
[2024-05-12 02:02] LABS: BILIRUBIN,TOTAL 0.2 mg/dL (0.2-1); TOT PROT 6.4 g/dl (6.4-8.2)
[2024-05-12] MEDS ORDERED: PIPERACILLIN/TAZOB 4.5 GM 4.5 GM/100 ML BAG IVPB ONE (02:11)
[2024-05-12] MEDS: PIPERACILLIN/TAZOB 4.5 GM 4.5 GM in DEXTROSE 5%-WATER 100 ML IVPB ONE (02:20)
[2024-05-12 02:40] LABS: ERYTHROCYTE SEDIMENTATION RATE 39 mm/hr (0-10)
[2024-05-12] MEDS ORDERED: VANCOMYCIN 1 GM PREMIX (F) 1 GM/200 ML BAG ONE ×2 (03:04→15:58)
[2024-05-12] MEDS: VANCOMYCIN 1 GM PREMIX (F) 1 GM/200 ML BAG IVPB ONE (03:10)
[2024-05-12] MEDS ORDERED: ACETAMINOPHEN 500 MG TABLET (FP) ONE ×2 (04:13→21:50)
[2024-05-12] MEDS ORDERED: DOCUSATE SODIUM 100 MG CAPSULE (FP) PO PRN (04:15)
[2024-05-12] MEDS: ACETAMINOPHEN 500 MG TABLET (FP) PO ONE (04:16)
[2024-05-12] MEDS ORDERED: MECLIZINE HCL 25 MG TABLET (FP) PO PRN (05:31)
[2024-05-12] MEDS ORDERED: GABAPENTIN 300 MG CAPSULE ONE ×2 (06:43→13:33)
[2024-05-12] MEDS: GABAPENTIN 300 MG CAPSULE PO SCH (06:46)
[2024-05-12 07:59] LABS: BASO % 0.8 % (0-2.0); EOS % 4.8 % (0-4.5); HEMATOCRIT 33.5 % (35.4-49); HEMOGLOBIN 11.7 GM/dL (11.7-16.9); LYMPH % 43.7 % (8-40); MCH 29.2 pg (25.7-33.7); MCHC 34.9 g/dl (32.0-35.9); MEAN CELL VOLUME 83.7 fl (80-96); MEAN PLT VOLUME 8.4 fl (7.5-11.1); MONO % 8.6 % (3.8-10.2); NEUT % 42.1 % (42.8-82.8); PLATELET COUNT 260 10^3/uL (134-434); RBC 4.01 M/mm3 (4.00-5.60); RDW 13.2 % (11.9-15.9); WHITE BLOOD COUNT 6.3 K/mm3 (4.0-10.0)
[2024-05-12 08:18] LABS: POTASSIUM 4.4 mmol/L (3.5-5.1)
[2024-05-12 08:21] LABS: INR 1.11 (0.83-1.09); PROTHROMBIN TIME (PATIENT) 12.7 SEC (9.7-13.0)
[2024-05-12 08:23] LABS: ACTIVATED PTT 29.7 SECONDS (25.2-36.5)
[2024-05-12 08:26] LABS: BLOOD UREA NITROGEN 34.7 mg/dL (7-18); CALCIUM 8.7 mg/dL (8.5-10.1); MAGNESIUM 1.6 mg/dL (1.8-2.4)
[2024-05-12 08:29] LABS: CREATININE 1.2 mg/dL (0.55-1.3)
[2024-05-12 08:30] LABS: PHOSPHOROUS 3.8 mg/dL (2.5-4.9)
[2024-05-12] MEDS ORDERED: PIPERACILLIN/TAZOB 3.375 GM 3.375 GM/50 ML BAG IVPB ONE ×3 (09:22→21:23)
[2024-05-12] MEDS: INSULIN ASPART SLIDING SCALE (NOVOLOG) 1 VIAL SQ SCH (09:35)
[2024-05-12] MEDS: PIPERACILLIN/TAZOB 3.375 GM 50 ML IVPB SCH (09:36)
[2024-05-12] MEDS ORDERED: HEPARIN NA (PORCINE) 5,000 UNITS/ML 1ML VIAL ONE (13:33)
[2024-05-12] MEDS: HEPARIN NA (PORCINE) 5,000 UNITS/ML 1ML VIAL SQ SCH (15:07)
[2024-05-12] MEDS: VANCOMYCIN 1 GM PREMIX (F) 1 GM/200 ML BAG IVPB SCH (16:08)
[2024-05-12] MEDS: ACETAMINOPHEN 500 MG TABLET (FP) PO PRN (22:30)
[2024-05-12] MEDS: ATORVASTATIN CA 10 MG TABLET (FP) PO SCH (22:30)
[2024-05-13 02:23] VITALS: BMI 21.7
[2024-05-13] MEDS: PIPERACILLIN/TAZOB 3.375 GM 50 ML IVPB SCH (03:30)
[2024-05-13] MEDS: VANCOMYCIN/WATER FOR INJ (PEG) 1 GM/200 ML BAG IVPB SCH (04:05)
[2024-05-13] MEDS: glipiZIDE 5 MG TABLET (FP) PO SCH (16:46)
[2024-05-14] MEDS: LISINOPRIL 5 MG TABLET PO SCH (09:29)
[2024-05-14 10:13] LABS: BASO % 0.7 % (0-2.0); HEMATOCRIT 33.8 % (35.4-49); HEMOGLOBIN 11.4 GM/dL (11.7-16.9); LYMPH % 42.4 % (8-40); MCH 28.7 pg (25.7-33.7); MCHC 33.8 g/dl (32.0-35.9); MEAN CELL VOLUME 84.8 fl (80-96); MEAN PLT VOLUME 8.7 fl (7.5-11.1); MONO % 7.8 % (3.8-10.2); NEUT % 45.1 % (42.8-82.8); PLATELET COUNT 257 10^3/uL (134-434); RBC 3.99 M/mm3 (4.00-5.60); RDW 13.1 % (11.9-15.9); WHITE BLOOD COUNT 7.5 K/mm3 (4.0-10.0)
[2024-05-14 10:28] LABS: POTASSIUM 4.7 mmol/L (3.5-5.1)
[2024-05-14 10:31] LABS: ALBUMIN 2.6 g/dl (3.4-5.0); BLOOD UREA NITROGEN 23.3 mg/dL (7-18)
[2024-05-14 10:35] LABS: CREATININE 1.2 mg/dL (0.55-1.3)
[2024-05-14 10:36] LABS: BILIRUBIN,TOTAL 0.3 mg/dL (0.2-1); TOT PROT 5.8 g/dl (6.4-8.2)
[2024-05-14 10:37] LABS: CALCIUM 8.6 mg/dL (8.5-10.1)
[2024-05-14] MEDS: PIPERACILLIN/TAZOB 3.375 GM 50 ML IVPB ONE (12:05)
[2024-05-14] MEDS: CEFTRIAXONE 2 GM-D5W BAG 2 GM/50 ML BAG IVPB SCH (15:38)
[2024-05-14 15:48] VITALS: RESP 18
[2024-05-15] MEDS: PIPERACILLIN/TAZOB 3.375 GM 3.375 GM in DEXTROSE 5%-WATER - 50 ML IVPB SCH (11:58)
[2024-05-15] MEDS: VANCOMYCIN 1 GM PREMIX (F) 1 GM/200 ML BAG IVPB SCH (11:58)
[2024-05-15 17:10] VITALS: BP 103/69; PULSE 69; TEMP 99.7
[2024-05-15] MEDS: glipiZIDE 5 MG TABLET (FP) PO SCH (18:23)
== END 2024-05-15 20:10 | disposition home or self-care (01) | DRG 380 ==
LOC: JER 20:29 → JERBED 05-12 03:55 → J5S 05-13 01:16
PROVIDERS: ADMIT Internal Medicine; ATTEND Internal Medicine
PROC: 0H9NXZZ Drainage of Left Foot Skin, External Approach (ICD-10-PCS; principal; 2024-05-13)
PROC: 0H9MXZZ Drainage of Right Foot Skin, External Approach (ICD-10-PCS; 2024-05-13)
DX: E11.621 Type 2 diabetes mellitus with foot ulcer (principal); L97.528 Non-pressure chronic ulcer of other part of left foot with other specified severity; L97.518 Non-pressure chronic ulcer of other part of right foot with other specified severity; E78.5 Hyperlipidemia, unspecified; S90.421A Blister (nonthermal), right great toe, initial encounter; S90.422A Blister (nonthermal), left great toe, initial encounter; E11.42 Type 2 diabetes mellitus with diabetic polyneuropathy; I10 Essential (primary) hypertension; F17.200 Nicotine dependence, unspecified, uncomplicated
CPT/HCPCS: 36415; 73630-TC-RT-FY; 80048; 80053; 82962; 83036; 83735; 84100; 85025; 85610; 85651; 85730; 86140; 87070; 87205; 93005; 93010; 99285-25; J1644

== ENCOUNTER 2024-05-30 17:28 | Inpatient (IN) | payer OTHER ==
[2024-05-30 19:04] LABS: BASO % 1.2 % (0-2.0); EOS % 3.1 % (0-4.5); HEMATOCRIT 36.9 % (35.4-49); HEMOGLOBIN 12.2 GM/dL (11.7-16.9); LYMPH % 34.3 % (8-40); MCH 28.2 pg (25.7-33.7); MCHC 33.1 g/dl (32.0-35.9); MEAN CELL VOLUME 85.2 fl (80-96); MEAN PLT VOLUME 8.1 fl (7.5-11.1); NEUT % 56.4 % (42.8-82.8); PLATELET COUNT 295 10^3/uL (134-434); RBC 4.33 M/mm3 (4.00-5.60); RDW 13.6 % (11.9-15.9); WHITE BLOOD COUNT 8.9 K/mm3 (4.0-10.0)
[2024-05-30 19:22] LABS: CHLORIDE 105 mmol/L (98-107); POTASSIUM 4.5 mmol/L (3.5-5.1); SODIUM 138 mmol/L (136-145)
[2024-05-30 19:24] LABS: ANION GAP 6 mmol/L (4-13); BLOOD UREA NITROGEN 24.1 mg/dL (7-18); CALCIUM 9.3 mg/dL (8.5-10.1); CO2 27 mmol/L (21-32); GLUCOSE,RANDOM 160 mg/dL (74-106)
[2024-05-30 19:25] LABS: ALBUMIN 3.4 g/dl (3.4-5.0)
[2024-05-30 19:27] LABS: SGOT/AST 12 U/L (15-37); SGPT/ALT 17 U/L (13-61)
[2024-05-30 19:28] LABS: CREATININE 0.9 mg/dL (0.55-1.3)
[2024-05-30 19:29] LABS: BILIRUBIN,TOTAL 0.2 mg/dL (0.2-1); TOT PROT 6.6 g/dl (6.4-8.2)
[2024-05-30 19:30] LABS: ALK PHOS 120 U/L (45-117)
[2024-05-30] MEDS ORDERED: VANCOMYCIN 1 GM PREMIX (F) 1 GM/200 ML BAG ONE (22:40)
[2024-05-30] MEDS ORDERED: PIPERACILLIN/TAZOB 4.5 GM 4.5 GM/100 ML BAG IVPB ONE (22:40)
[2024-05-30] MEDS: PIPERACILLIN/TAZOB 4.5 GM 4.5 GM in DEXTROSE 5%-WATER 100 ML IVPB ONE (22:48)
[2024-05-30] MEDS: VANCOMYCIN 1,000 MG in DEXTROSE 5%-WATER - 250 ML IVPB ONE (22:58)
[2024-05-31 02:47] VITALS: BMI 22.4
[2024-05-31] MEDS ORDERED: ACETAMINOPHEN 500 MG TABLET (FP) PO PRN (04:01)
[2024-05-31] MEDS: ACETAMINOPHEN 500 MG TABLET (FP) PO PRN (05:12)
[2024-05-31] MEDS: glipiZIDE 5 MG TABLET (FP) PO SCH (06:46)
[2024-05-31] MEDS: metFORMIN HCL 500 MG TABLET (FP) PO SCH (06:46)
[2024-05-31] MEDS: GABAPENTIN 100 MG CAPSULE PO SCH (06:46)
[2024-05-31] MEDS: INSULIN ASPART SLIDING SCALE (NOVOLOG) 1 VIAL SQ SCH (06:47)
[2024-05-31 09:05] LABS: HEMATOCRIT 37.3 % (35.4-49); HEMOGLOBIN 12.4 GM/dL (11.7-16.9); LYMPH % 42.1 % (8-40); MCH 28.5 pg (25.7-33.7); MCHC 33.2 g/dl (32.0-35.9); MEAN CELL VOLUME 85.8 fl (80-96); MEAN PLT VOLUME 8.2 fl (7.5-11.1); MONO % 6.8 % (3.8-10.2); NEUT % 46.1 % (42.8-82.8); PLATELET COUNT 334 10^3/uL (134-434); RBC 4.34 M/mm3 (4.00-5.60); RDW 13.6 % (11.9-15.9); WHITE BLOOD COUNT 9.7 K/mm3 (4.0-10.0)
[2024-05-31 09:30] LABS: CHLORIDE 108 mmol/L (98-107); POTASSIUM 3.7 mmol/L (3.5-5.1); SODIUM 141 mmol/L (136-145)
[2024-05-31 09:31] LABS: ANION GAP 5 mmol/L (4-13); BLOOD UREA NITROGEN 23.4 mg/dL (7-18); CALCIUM 9.3 mg/dL (8.5-10.1); CO2 29 mmol/L (21-32)
[2024-05-31 09:35] LABS: CREATININE 1.1 mg/dL (0.55-1.3)
[2024-05-31 09:53] LABS: GLUCOSE,RANDOM 29 mg/dL (74-106)
[2024-05-31] MEDS: PIPERACILLIN/TAZOB 4.5 GM 4.5 GM/100 ML BAG IVPB SCH (10:16)
[2024-05-31] MEDS: ENOXAPARIN NA (PORCINE) 40 MG/0.4 ML DISP.SYRIN SQ SCH (10:16)
[2024-05-31] MEDS: LISINOPRIL 5 MG TABLET PO SCH (10:47)
[2024-05-31] MEDS ORDERED: VANCOMYCIN/WATER FOR INJ (PEG) 1,000 MG/200 ML BAG IVPB SCH (11:00)
[2024-05-31] MEDS: VANCOMYCIN 1 GM PREMIX (F) 1,000 MG/200 ML BAG IVPB SCH (11:32)
[2024-05-31] MEDS: PIPERACILLIN/TAZOB 4.5 GM 4.5 GM in DEXTROSE 5%-WATER 100 ML IVPB SCH (12:41)
[2024-05-31] MEDS: VANCOMYCIN 1,000 MG in DEXTROSE 5%-WATER - 250 ML IVPB SCH (13:01)
[2024-05-31] MEDS: CEFTRIAXONE 2 GM-D5W BAG 2 GM/50 ML BAG IVPB SCH (13:18)
[2024-05-31] MEDS: ATORVASTATIN CA 10 MG TABLET (FP) PO SCH (21:59)
[2024-06-01 07:59] LABS: BASO % 0.9 % (0-2.0); EOS % 3.8 % (0-4.5); HEMOGLOBIN 11.6 GM/dL (11.7-16.9); LYMPH % 37.8 % (8-40); MCH 29.1 pg (25.7-33.7); MCHC 34.2 g/dl (32.0-35.9); MEAN CELL VOLUME 85.1 fl (80-96); MEAN PLT VOLUME 8.6 fl (7.5-11.1); MONO % 6.4 % (3.8-10.2); NEUT % 51.1 % (42.8-82.8); PLATELET COUNT 248 10^3/uL (134-434); RBC 3.99 M/mm3 (4.00-5.60); RDW 13.8 % (11.9-15.9)
[2024-06-01 08:11] LABS: POTASSIUM 4.6 mmol/L (3.5-5.1)
[2024-06-01 08:17] LABS: BLOOD UREA NITROGEN 24.5 mg/dL (7-18)
[2024-06-01 08:21] LABS: BILIRUBIN,TOTAL 0.3 mg/dL (0.2-1); TOT PROT 5.9 g/dl (6.4-8.2)
[2024-06-01] MEDS: SODIUM CHLORIDE 0.45% 1,000 ML IV SCH (11:54)
[2024-06-01] MEDS: metFORMIN HCL 500 MG TABLET (FP) PO SCH (17:35)
[2024-06-02 10:40] VITALS: RESP 18
[2024-06-02] MEDS: glipiZIDE 5 MG TABLET (FP) PO SCH (17:21)
[2024-06-02] MEDS: IBUPROFEN 600 MG TABLET (FP) PO PRN (17:21)
[2024-06-03 07:28] VITALS: PULSE 72
[2024-06-03 07:54] LABS: BASO % 1.1 % (0-2.0); HEMATOCRIT 32.1 % (35.4-49); HEMOGLOBIN 10.8 GM/dL (11.7-16.9); LYMPH % 40.1 % (8-40); MCH 28.9 pg (25.7-33.7); MCHC 33.6 g/dl (32.0-35.9); MEAN CELL VOLUME 85.9 fl (80-96); MEAN PLT VOLUME 8.8 fl (7.5-11.1); MONO % 8.1 % (3.8-10.2); NEUT % 45.7 % (42.8-82.8); PLATELET COUNT 219 10^3/uL (134-434); RBC 3.74 M/mm3 (4.00-5.60); RDW 13.5 % (11.9-15.9); WHITE BLOOD COUNT 5.8 K/mm3 (4.0-10.0)
[2024-06-03 08:15] LABS: POTASSIUM 4.2 mmol/L (3.5-5.1)
[2024-06-03 08:18] LABS: CALCIUM 8.8 mg/dL (8.5-10.1)
[2024-06-03 08:19] LABS: ALBUMIN 3.1 g/dl (3.4-5.0); BLOOD UREA NITROGEN 23.3 mg/dL (7-18)
[2024-06-03 08:22] LABS: CREATININE 0.9 mg/dL (0.55-1.3)
[2024-06-03 08:23] LABS: BILIRUBIN,TOTAL 0.3 mg/dL (0.2-1)
[2024-06-03 08:24] LABS: TOT PROT 5.6 g/dl (6.4-8.2)
[2024-06-03 09:22] VITALS: BP 106/73; TEMP 98.2
[2024-06-03] MEDS ORDERED: AMOX TR/POT CLAV 500MG/125MG TABLETS (FP) PO SCH (17:30)
== END 2024-06-03 14:36 | disposition home health service (06) | DRG 380 ==
LOC: JER 17:28 → JERBED 22:31 → J7W 05-31 03:02
PROVIDERS: ADMIT Student in an Organized Health Care Education/Training Program; ATTEND Internal Medicine
DX: E11.621 Type 2 diabetes mellitus with foot ulcer (principal); E11.42 Type 2 diabetes mellitus with diabetic polyneuropathy; E11.52 Type 2 diabetes mellitus with diabetic peripheral angiopathy with gangrene; L97.529 Non-pressure chronic ulcer of other part of left foot with unspecified severity; I10 Essential (primary) hypertension; F17.210 Nicotine dependence, cigarettes, uncomplicated; Z79.84 Long term (current) use of oral hypoglycemic drugs; E11.649 Type 2 diabetes mellitus with hypoglycemia without coma
CPT/HCPCS: 0241U-QW; 36415; 73630-TC-LT; 73630-TC-RT-FY; 73718-TC-LT; 73718-TC-RT; 80048; 80053; 82962; 83036; 85025; 85651; 86140; 99285-25

== ENCOUNTER 2024-06-10 19:13 | Emergency (ER) | payer OTHER ==
[2024-06-10] MEDS ORDERED: ACETAMINOPHEN INJECTION 100 ML ONE (20:01)
[2024-06-10] MEDS: ACETAMINOPHEN 1000 MG/100 ML BAG IVPB ONE (20:42)
[2024-06-10 20:46] LABS: BASO % 0.4 % (0-2.0); EOS % 0.1 % (0-4.5); HEMATOCRIT 37.4 % (35.4-49); HEMOGLOBIN 12.9 GM/dL (11.7-16.9); LYMPH % 13.1 % (8-40); MCH 28.8 pg (25.7-33.7); MCHC 34.4 g/dl (32.0-35.9); MEAN CELL VOLUME 83.8 fl (80-96); MEAN PLT VOLUME 9.9 fl (7.5-11.1); NEUT % 78.4 % (42.8-82.8); PLATELET COUNT 280 10^3/uL (134-434); RBC 4.46 M/mm3 (4.00-5.60); RDW 13.8 % (11.9-15.9); WHITE BLOOD COUNT 7.4 K/mm3 (4.0-10.0)
[2024-06-10 20:47] VITALS: BMI 22.3
[2024-06-10] MEDS ORDERED: ONDANSETRON 4 MG/2 ML VIAL ONE (20:54)
[2024-06-10] MEDS: ONDANSETRON 4 MG/2 ML VIAL IVPUSH ONE (20:58)
[2024-06-10 21:04] LABS: POTASSIUM 5.1 mmol/L (3.5-5.1)
[2024-06-10 21:06] LABS: ALBUMIN 3.6 g/dl (3.4-5.0)
[2024-06-10 21:09] LABS: CREATININE 1.2 mg/dL (0.55-1.3)
[2024-06-10 21:10] LABS: BILIRUBIN,TOTAL 0.5 mg/dL (0.2-1); TOT PROT 7.2 g/dl (6.4-8.2)
[2024-06-10 21:15] LABS: N-TERMINAL BNP 87.4 pg/ml (5-125)
[2024-06-10 21:58] LABS: INR 1.55 (0.83-1.09); PROTHROMBIN TIME (PATIENT) 16.9 SEC (9.7-13.0)
[2024-06-10 22:01] LABS: ACTIVATED PTT 29.9 SECONDS (25.2-36.5)
[2024-06-10] MEDS: LACTATED RINGERS SOLUTION 1000 ML INFUS.BAG IV ONE (22:28)
[2024-06-11 01:03] VITALS: BP 112/78; PULSE 70; RESP 18
== END 2024-06-11 01:15 | disposition home or self-care (01) ==
LOC: JER 19:13
PROC: 3E033NZ Introduction of Analgesics, Hypnotics, Sedatives into Peripheral Vein, Percutaneous Approach (ICD-10-PCS; principal; 2024-06-10)
PROC: 3E033GC Introduction of Other Therapeutic Substance into Peripheral Vein, Percutaneous Approach (ICD-10-PCS; 2024-06-10)
DX: R07.81 Pleurodynia (principal); R06.02 Shortness of breath; R06.09 Other forms of dyspnea; R11.0 Nausea
CPT/HCPCS: 36415; 71045-TC-FY; 71275-TC; 80053; 83880; 84484; 85025; 85610; 85730; 93005; 93010; 96374; 96375; 99285-25; J0131; Q9967